=== PATIENT | male | born 1995 | race Caucasian/White ===

== ENCOUNTER 2025-01-10 12:50 | Emergency (ER) | payer MEDICAID ==
[~2025-01-10] VITALS: Ht 185.4 cm; Wt 95.0 kg
[2025-01-10 13:03] VITALS: TEMP 37.2; O2SAT 100
[2025-01-10 15:07] LABS: BASOPHILS % 0.6 % (0.0-2.0); EOSINOPHILS % 8.4 % (0.0-5.0); HEMATOCRIT. 45.2 % (42.0-52.0); HEMOGLOBIN. 15.2 g/dL (14.0-18.0); LYMPHOCYTES % 32.2 % (20.0-50.0); MEAN PLATELET VOLUME 8.3 fl (7.4-10.4); MONOCYTES % 9.2 % (2.0-8.0); NEUTROPHILS % 49.6 % (40.0-76.0); PLATELET 240 x1000/uL (130-400); RED BLOOD CELL COUNT 5.26 mill/uL (4.7-6.1); RED CELL DISTRIBUTION WIDTH 13.1 % (11.6-14.6)
[2025-01-10 15:26] LABS: TROPONIN I HIGH SENSITIVITY 9 ng/L (3.0-53)
[2025-01-10 15:27] LABS: CREATININE 1.1 mg/dL (0.6-1.3); UREA NITROGEN BLOOD 12 mg/dL (9-23)
[2025-01-10 15:28] LABS: ASPARTATE AMINOTRANSFERASE 90 IU/L (<34)
[2025-01-10 15:29] LABS: BILIRUBIN DIRECT 0.1 mg/dL (<=3.0); BILIRUBIN TOTAL 0.5 mg/dL (0.1-1.0); PROTEIN TOTAL 7.6 g/dL (6.0-8.3)
[2025-01-10] MEDS ORDERED: CELE100C MT (15:45)
[2025-01-10 16:13] VITALS: BP 143/99; PULSE 60; RESP 16; O2SAT 100
== END 2025-01-10 16:15 | disposition home or self-care (01) ==
LOC: ER 12:50
DX: R07.89 Other chest pain (principal); Z79.1 Long term (current) use of non-steroidal anti-inflammatories (NSAID)
CPT/HCPCS: 36415; 71045; 80048; 80076; 84484; 85025; 85379; 93005; 99285